=== PATIENT | female | born 1995 | race Caucasian/White ===

== ENCOUNTER 2021-07-16 05:32 | Outpatient (CLI) | payer OTHER, MEDICAID ==
[~2021-07-16] VITALS: Ht 167.7 cm; Wt 85.9 kg
[2021-07-17] MEDS ORDERED: CARI1.5C PO (11:11)
[2021-07-17] MEDS ORDERED: POLY17PO54 PO (11:11)
[2021-07-17] MEDS ORDERED: DIPH25TA31 PO (11:11)
[2021-07-17] MEDS ORDERED: PIND10TA PO (11:11)
[2021-07-17] MEDS ORDERED: ACET600C5 PO (11:11)
[2021-07-17] MEDS ORDERED: NSTR15C TP (11:11)
[2021-07-17] MEDS ORDERED: PANT40TA2 PO (11:11)
[2021-07-17] MEDS ORDERED: DOCU-143 PO (11:11)
[2021-07-17] MEDS ORDERED: CALC200T40 PO (11:11)
[2021-07-17] MEDS ORDERED: ASPI-999 PO (11:11)
[2021-07-17] MEDS ORDERED: ACET-168 PO (11:11)
[2021-07-17] MEDS ORDERED: LAMO25TA8 PO (11:11)
[2021-07-17] MEDS ORDERED: NALT50TA PO (11:11)
[2021-07-17] MEDS ORDERED: MUPI22OI2 TP (11:11)
[2021-07-17] MEDS ORDERED: LITH300T3 PO (11:11)
[2021-07-17] MEDS ORDERED: CLOZ100T7 PO (11:11)
[2021-07-17] MEDS ORDERED: LORA10TA7 PO (11:11)
== END 2021-07-17 11:14 | disposition home or self-care (01) ==
LOC: PREOP 05:32
PROVIDERS: ATTEND Dentist General Practice
DX: Z01.818 Encounter for other preprocedural examination (principal)

== ENCOUNTER 2021-07-23 11:06 | Day surgery (SDC) | payer OTHER, MEDICARE, MEDICAID ==
[2021-07-23] VITALS (7 sets, daily range): BP systolic 106–123; BP diastolic 66–93
[~2021-07-23] VITALS: Ht 167 cm; Wt 85.9 kg
[~2021-07-23 11:06] MED LIST: ACET-168 PO; ACET600C5 PO; ASPI-999 PO; CALC200T40 PO; CARI1.5C PO; CLOZ100T7 PO; DIPH25TA31 PO; DOCU-143 PO; LAMO25TA8 PO; LITH300T3 PO; LORA10TA7 PO; MUPI22OI2 TP; NALT50TA PO; NSTR15C TP; PANT40TA2 PO; PIND10TA PO; POLY17PO54 PO
--- OUTSIDE RECORDS SUMMARY | 2021-07-23 11:09 | XMS REPORT | Clinical Summary ---
Author Author [facility] Organization [facility] Address Unknown Phone Unavailable Care Team Providers [facility] Registrar Name Role Phone PCP Unavailable Source Comments Some departments are not documenting in the electronic medical record. If you d o not see the information that you expected, contact Release of Information in [facility] [employer] Information Management department at [phone] for further assistan ce in locating additional records.[facility] Allergies Not on File Medications Not on file Active Problems Not on file Social History Date Tobacco Use Types Packs/Day Years Used Never Assessed Sex Assigned at Date Recorded Not on file Last Filed Vital Signs Not on file Plan of Treatment Health Maintenance Due Date Last Done Comments CHLAMYDIA SCREENING 18-24 1997 YEARS HPV VACCINES (1 - 2-dose 2008 series) HIV SCREENING 2012 DTAP/TDAP VACCINES ( - 2015 Tdap) HEPATITIS C SCREENING 2015 PHYSICAL (COMPREHENSIVE) 2015 EXAM CERVICAL CANCER SCREENING 2018 INFLUENZA VACCINE 04/14/2021 Results Not on filefrom Last 3 Months
[2021-07-23] MEDS ORDERED: SEVOFLURANE (ULTANE) 15 ML INHAL SOLN ONE ×2 (12:00→14:38)
[2021-07-23] MEDS ORDERED: LIDOCAINE PF 2% 5 ML (XYLOCAINE) VIAL ONE (12:00)
[2021-07-23] MEDS ORDERED: ONDANSETRON 4 MG/2 ML (SDV) Z0FRAN ONE (12:00)
[2021-07-23] MEDS ORDERED: proPOfol 200 MG/20 ML (DIPRIVAN) VIAL IV ONE (12:00)
[2021-07-23] MEDS ORDERED: ROCURONIUM 10 MG/ML 5 ML SYRINGE IV ONE (12:00)
[2021-07-23] MEDS ORDERED: fentaNYL INJ 100 MCG/2 ML AMP ONE ×2 (12:01→12:55)
[2021-07-23] MEDS ORDERED: LACTATED RINGERS 1,000 ML IV PRN (12:15)
[2021-07-23] MEDS ORDERED: PHENYLEPHRINE 0.25% NASAL SPR (NEO-SYNEPHRINE) 15 ML NS ONE (12:35)
--- NOTE | 2021-07-23 14:44 | Anesthesia-General Post-Op ---
General Post Op Complications Complications None Follow Up Care/Instructions Patient Instructions None needed. Anesthesia/Patient Condition Patient Condition Patient is doing well, no complaints, stable vital signs, no apparent adverse anesthesia problems. No complications reported per nursing. RICHELLE OCRONEL CRNA Jul 23, 2021 14:44
--- NOTE | 2021-07-31 15:39 | OPERATIVE REPORT ---
DATE OF SERVICE: 07/23/2021 PREOPERATIVE DIAGNOSIS: Dental caries. POSTOPERATIVE DIAGNOSIS: Dental caries. OPERATION PERFORMED: Repair of numerous teeth with composite resin with stainless steel crown, root canal therapy, foundation, placement and extraction. DESCRIPTION OF PROCEDURE: The patient was treated on an outpatient basis and following suitable premedication, was taken to the OR and placed in the supine position upon the table. Anesthesia was induced. Nasotracheal intubation accomplished and general anesthesia was administered. A throat pack consisting of one wet 4 x 4 gauze sponge was placed in the oropharynx and maintained in place throughout the procedure. Mouth opening was maintained at all times with digital pressure. No retractors of any kind were utilized. Caries was removed from teeth numbers 7, 8 and 9 and composite resin used to repair those teeth. Stainless steel crown was applied to tooth #31 after the caries had been removed and tooth #13 received the endodontic therapy and the foundation was placed and then a stainless steel crown. Teeth numbers 1, 16, 17 and 32 were then extracted. The patient tolerated this procedure quite nicely and following a thorough debridement of the oral cavity with a copious flow of water, adequate suction and compressed air, the throat pack was removed. The patient was extubated and taken to the recovery in quite satisfactory condition. Job ID: [id number] DocumentID: [id number] Dictated Date: 07/31/2021 10:18:55 Sweatband Perforator Date: 07/31/2021 15:38:53 Dictated By: DONNA JONES DDS
== END 2021-07-23 16:00 | disposition home or self-care (01) ==
LOC: SDC 11:06
PROVIDERS: ATTEND Dentist General Practice
DX: K02.9 Dental caries, unspecified (principal); F31.9 Bipolar disorder, unspecified; F84.0 Autistic disorder; F43.25 Adjustment disorder with mixed disturbance of emotions and conduct; K21.9 Gastro-esophageal reflux disease without esophagitis; F90.9 Attention-deficit hyperactivity disorder, unspecified type; F41.9 Anxiety disorder, unspecified; F79 Unspecified intellectual disabilities; F42.9 Obsessive-compulsive disorder, unspecified; K59.00 Constipation, unspecified; E66.9 Obesity, unspecified; Z68.30 Body mass index [BMI] 30.0-30.9, adult; Z88.8 Allergy status to other drugs, medicaments and biological substances; Z79.899 Other long term (current) drug therapy; Z79.82 Long term (current) use of aspirin; Z11.2 Encounter for screening for other bacterial diseases
CPT/HCPCS: 84703; 87081

== ENCOUNTER 2022-06-24 05:32 | Outpatient (CLI) | payer OTHER, MEDICARE, MEDICAID ==
[~2022-06-24] VITALS: Ht 165.1 cm; Wt 93.2 kg
[~2022-06-24 05:32] MED LIST changes: -NSTR15C TP; +NYST15CR36 TP
== END 2022-06-25 14:54 | disposition home or self-care (01) ==
LOC: PREOP 05:32
PROVIDERS: ATTEND Dentist General Practice
DX: Z01.818 Encounter for other preprocedural examination (principal)

== ENCOUNTER 2022-07-01 10:35 | Day surgery (SDC) | payer OTHER, MEDICARE, MEDICAID ==
[~2022-07-01] VITALS: Ht 165 cm; Wt 93.2 kg
[2022-07-01] VITALS (11 sets, daily range): BP systolic 111–135; BP diastolic 66–97
[2022-07-01] MEDS ORDERED: LACTATED RINGERS 1,000 ML IV PRN (10:45)
[2022-07-01] MEDS ORDERED: PHENYLEPHRINE 0.25% NASAL SPR (NEO-SYNEPHRINE) 15 ML NS ONE ×2 (10:45→12:48)
[2022-07-01] MEDS ORDERED: ROCURONIUM 10 MG/ML 5 ML SYRINGE IV ONE (11:29)
[2022-07-01] MEDS ORDERED: SEVOFLURANE (ULTANE) 15 ML INHAL SOLN ONE ×2 (11:29→14:18)
[2022-07-01] MEDS ORDERED: fentaNYL INJ 100 MCG/2 ML AMP ONE (11:29)
[2022-07-01] MEDS ORDERED: proPOfol 200 MG/20 ML (DIPRIVAN) VIAL IV ONE (11:29)
[2022-07-01] MEDS ORDERED: LIDOCAINE PF 2% 5 ML (XYLOCAINE) VIAL ONE (11:29)
[2022-07-01] MEDS ORDERED: MIDAZOLAM 2 MG/2 ML (VERSED) VIAL ONE (11:32)
[2022-07-01] MEDS ORDERED: ONDANSETRON 4 MG/2 ML (SDV) Z0FRAN ONE (14:09)
[2022-07-01] MEDS ORDERED: PROMETHAZINE INJ 25 MG/ML (PHENERGAN) AMP ONE (14:40)
[2022-07-01] MEDS ORDERED: PROMETHAZINE INJ 25 MG/ML (PHENERGAN) AMP IVP ONE (14:45)
[2022-07-01] MEDS ORDERED: morphine INJ 10 MG/ML 1ML (SYR OR VIAL) IVP ONE (14:45)
[2022-07-01] MEDS ORDERED: ONDANSETRON 4 MG/2 ML (SDV) Z0FRAN IVP PRN (14:45)
--- NOTE | 2022-07-01 14:51 | Anesthesia-General Post-Op ---
General Patient Condition Nausea/Vomiting: Present (treated with Rx) Post Op Complications Complications None Follow Up Care/Instructions Patient Instructions None needed. Anesthesia/Patient Condition Patient Condition Patient is doing well, no complaints, stable vital signs, no apparent adverse anesthesia problems. No complications reported per nursing. LUPE BECK CRNA Jul 01, 2022 14:51
[2022-07-01] MEDS ORDERED: ACETAMINOPHEN 500 MG TAB (TYLENOL) PO ONE (16:00)
--- NOTE | 2022-07-02 16:55 | OPERATIVE REPORT ---
DATE OF SERVICE: 07/01/2022 PREOPERATIVE DIAGNOSIS: Dental caries. POSTOPERATIVE DIAGNOSIS: Dental caries. OPERATION PERFORMED: Repair of numerous carious teeth utilizing composite resin. DESCRIPTION OF PROCEDURE: The patient was treated on an outpatient basis and following suitable premedication, taken to the operating room and placed in the supine position upon the table. An endotracheal tube was placed. General anesthesia was administered. Throat pack consisting of one wet 4 x 4 gauze sponge was placed in the oropharynx and maintained in place throughout the procedure. Mouth opening was maintained at all times with simple digital pressure. No mechanical retractors of any kind were utilized. Caries was removed and composite resin placed and teeth numbers 12, 18, 19, 21, 22, 23, 24, 25 and 28. The patient tolerated this procedure quite nicely and following a thorough debridement of the oral cavity with a copious flow of water, adequate suction and compressed air, the throat pack was removed. The patient was extubated and taken to recovery in quite satisfactory condition. Job ID: [id number] DocumentID: [id number] Dictated Date: 07/02/2022 10:38:55 Manager Spanish Date: 07/02/2022 16:54:13 Dictated By: DONNA JONES DDS
== END 2022-07-01 16:25 | disposition home or self-care (01) ==
LOC: SDC 10:35
PROVIDERS: ATTEND Dentist General Practice
DX: K02.9 Dental caries, unspecified (principal); F25.0 Schizoaffective disorder, bipolar type; E66.01 Morbid (severe) obesity due to excess calories; Z68.34 Body mass index [BMI] 34.0-34.9, adult
CPT/HCPCS: 84703; 87081